=== PATIENT | male | born 1945 | race Caucasian/White ===

== ENCOUNTER → 2020-05-05 19:17 | Outpatient (CLI) | payer MEDICARE, SELFPAY ==
[2020-05-05 19:27] LABS: Basophils # 0.1 K/mm3 (0-0.2); Basophils % 0.9 % (0.1-2.0); Eosinophils # 0.2 K/mm3 (0.0-0.4); Eosinophils % 2.6 % (0.1-12.0); Neutrophils # 4.7 K/mm3 (1.8-7.8)
[2020-05-05 19:33] LABS: Hematocrit 58.9 % (42.0-52.0); Lymphocytes % 26.7 % (10-50); Mean Corpuscular HGB Conc 32.1 g/dL (31.8-35.4); Mean Corpuscular Hemoglobin 30.8 pg (27.0-31.2); Mean Platelet Volume 9.3 fl (7.4-10.4); Monocytes # 0.6 K/mm3 (0.1-1.0); Monocytes % 7.8 % (1.7-9.3); Neutrophils % 61.9 % (37.0-80.0); Platelet Count 227 K/mm3 (142-424); Red Blood Count 6.14 M/mm3 (4.60-6.20); White Blood Count 7.6 K/mm3 (4.8-10.8)
[2020-05-05 19:38] LABS: Alanine Aminotransferase 20 U/L (12-78); Albumin Level 4.2 g/dl (3.5-5.0); Albumin/Globulin Ratio 1.2 (1.1-1.8); Alkaline Phosphatase 86 U/L (38-126); Anion Gap 12.5 mEq/L (5-15); Aspartate Amino Transferase 27 U/L (17-59); Bilirubin,Total 1.2 mg/dl (0.2-1.3); Blood Urea Nitrogen 14 mg/dl (9-20); Calcium 9.9 mg/dl (8.4-10.2); Carbon Dioxide 25 mmol/L (22.0-30.0); Chloride 107 mmol/L (98-107); Chol/HDL Ratio 2.2 (1-3.5); Cholesterol 134 mg/dl (140-200); Estimated Glomerular Filt Rate 59 ml/min (>60); GFR (African American) 71 ML/MIN (>60); Globulin 3.5 g/dL (1.3-3.2); Glucose 96 mg/dl (74-100); HDL Cholesterol 62 mg/dl (40-60); Potassium 4.5 mmoL/L (3.5-5.1); Sodium 140 mmol/L (136-145); Total Protein,Serum 7.7 g/dl (6.3-8.2); Triglycerides 104 mg/dl (30-150); VLDL Cholesterol 21 mg/dL (0-40)
[2020-05-05 19:48] LABS: Hemoglobin 18.9 g/dL (14.1-18.0)
[2020-05-05 19:54] LABS: Free T4 (Free Thyroxine) 1.61 ng/dl (0.78-2.19)
[2020-05-05 19:55] LABS: 25-OH Vitamin D, Total 43.5 ng/mL (30-100)
[2020-05-05 20:08] LABS: Thyroid Stimulating Hormone 1.26 uIU/mL (0.465-4.68)
[2020-05-05 20:11] LABS: Hemoglobin A1C 5.7 % (4.0-6.0)
[2020-05-08 11:15] LABS: Creatinine,Urine Random 46 mg/dL (Not Estab.)
[2020-05-08 11:16] LABS: Microalbumin/Creatinine Ratio 89.5
== END ==
PROVIDERS: Visit Provider Emergency Medicine
DX: E11.9 Type 2 diabetes mellitus without complications (principal); E66.3 Overweight; I10 Essential (primary) hypertension; E55.9 Vitamin D deficiency, unspecified; Z79.84 Long term (current) use of oral hypoglycemic drugs
CPT/HCPCS: 80053; 80061; 82043; 82306; 82570; 83036; 84439; 84443; 85025

== ENCOUNTER → 2020-09-15 14:22 | Outpatient (CLI) | payer MEDICARE, MEDICAID, SELFPAY ==
--- NOTE | 2020-09-15 14:27 | CA_ITS ---
APPROVED REPORT EXAM: Comprehensive 2D, Doppler, and color-flow Echocardiogram Official Greeter: Deyanira Jules, RT(R) Ht: 5 ft 8 in Wt: 182lbs BSA: 1.96 BP: 124/74 mmHg Indications: murmur, DM, obesity 2D Dimensions LVOT 2.02 cm (M/F) 1.5-2.5 M-Mode Dimensions RVDd 1.34 cm (0.9-2.6) LA Diam 2.78 cm (1.9-4.0) LVDd 3.53 cm (3.5-5.7) Ao Diam 3.18 cm (2.0-3.7) LVDs 2.01 cm (3.5-5.7) IVSd 1.07 cm (0.6-1.1) PWd 0.80 cm (0.6-1.1) EF (Teich) 75.10% FS 43.10% EDV (Teich) 51.90 mL ESV (Teich) 12.90 mL LV Diastology E Decel Time 197.00 (160-240 msec) E/A Ratio 0.5 MED E' 7.30 (< 7 cm/sec) E'/MED E' Ratio 10.41 (>14) LAT E' 6.80 (<10 cm/sec) E/LAT E' Ratio 11.18 (>14) Aortic Valve LVOT Max 128.00 (70-110 cm/s) LVOT VTI 24.50 cm AoV Peak Desean. 206.00 (50-130 cm/s) AO Peak GR. 17.00 mmHg AO Mean GR. 9.90 (<5 mmHg) AO VTI 35.61 (18-25 cm) GRABIEL (VTI) 2.20 (2.5-4.5 cm2) Mitral Valve MV E Max Desean. 76.00 (40-130 cm/s) MV A Velocity 140.00 (40-130 cm/s) E/A Ratio 0.54 MV Decel. Time 197.00 (160-240 ms) MV PHT 58.00 ms Left Ventricle Left atrium is mildly enlarged, left ventricle is normal size, mild concentric left ventricular hypertrophy, visually estimated ejection fraction 55% with no regional wall motion abnormality, grade 1 diastolic dysfunction seen without tissue Doppler evidence of raise left atrial pressure. Right Ventricle Right atrium and right ventricle are normal size and contractility. Aortic Valve Aortic valve is thickened and calcified, mean gradient across aortic valve is 9 mmHg, this represents mild aortic stenosis, morphologically there is moderate aortic stenosis, there is no aortic insufficiency. Mitral Valve Mitral valve leaflets are minimally thickened, there is mild mitral regurgitation. Tricuspid Valve Tricuspid valve grossly normal, there is mild tricuspid regurgitation, tricuspid regurgitation jet velocity is inadequate for calculation of the right ventricular systolic pressure. Pulmonic Valve Pulmonic valve is poorly visualized. Great Vessels Aortic root is normal size. Pericardium No significant pericardial effusion noted. Conclusion 1. Mildly low left atrium, normal left ventricular size, mild concentric left ventricular hypertrophy, visually estimated ejection fraction 55% with no regional wall motion abnormality, grade 1 diastolic dysfunction seen without tissue Doppler evidence of raise left atrial pressure. 2. Thickened and calcified aortic valve morphologically there is moderate aortic stenosis, however Doppler is indicative of mild aortic stenosis, there is no aortic insufficiency. 3. Mild mitral and tricuspid regurgitation. 4. No significant pericardial effusion noted. Electronically signed by : Trung Kumari, 09/15/2020 17:18:40
== END ==
PROVIDERS: PCP Emergency Medicine; Visit Provider Emergency Medicine
DX: I35.8 Other nonrheumatic aortic valve disorders (principal)
CPT/HCPCS: 93306

== ENCOUNTER → 2020-10-06 11:16 | Outpatient (CLI) | payer MEDICARE, MEDICAID, SELFPAY ==
--- NOTE | 2020-10-06 11:16 | CA_ITS ---
APPROVED REPORT Objects Conservator: VANITA Laterality: Bilateral Study Quality: Good Indications: carotid bruit Doppler Spectral Velocity Analysis ECA (R) 123.10/16.00 cm/s dICA (L) 71.20/18.30 cm/s Harish (L) 58.50/23.80 cm/s dICA (R) 69.80/26.40 cm/s pICA (L) 51.70/15.70 cm/s Harish (R) 75.50/30.20 cm/s pICA (R) 86.80/18.90 cm/s dCCA (L) 57.40/17.90 cm/s pCCA (L) 68.90/15.10 cm/s dCCA (R) 56.00/14.90 cm/s pCCA (R) 84.00/14.60 cm/s Vert (L) 56.80/14.20 cm/s Vert (R) 41.50/10.40 cm/s ICA/CCA 1.20 ICA/CCA 1.60 Findings Duplex evaluation demonstrates stenosis of the right proximal internal carotid artery in the range of 20-49% with PSV <140 cm/sec, EDV <100 cm/sec, and IC/CC Ratio <4.0.Duplex evaluation demonstrates stenosis of the left proximal internal carotid artery in the range of 20-49% with PSV <140 cm/sec, EDV <100 cm/sec, and IC/CC Ratio <4.0.Antegrade flow seen bilateral vertebral arteries. Conclusion Duplex evaluation demonstrates stenosis of the right proximal internal carotid artery in the range of 20-49% with PSV <140 cm/sec, EDV <100 cm/sec, and IC/CC Ratio <4.0.Duplex evaluation demonstrates stenosis of the left proximal internal carotid artery in the range of 20-49% with PSV <140 cm/sec, EDV <100 cm/sec, and IC/CC Ratio <4.0.Antegrade flow seen bilateral vertebral arteries. Electronically signed by : Ru Tolentino MD 10/06/2020 16:44:35
== END ==
PROVIDERS: PCP Emergency Medicine; Visit Provider Nurse Practitioner Family
DX: E11.9 Type 2 diabetes mellitus without complications (principal); E78.5 Hyperlipidemia, unspecified; I10 Essential (primary) hypertension; I35.0 Nonrheumatic aortic (valve) stenosis; R01.1 Cardiac murmur, unspecified; R09.89 Other specified symptoms and signs involving the circulatory and respiratory systems; Z79.84 Long term (current) use of oral hypoglycemic drugs
CPT/HCPCS: 93880

== ENCOUNTER → 2023-06-03 14:32 | Outpatient (CLI) | payer MEDICARE, MEDICAID, SELFPAY ==
--- NOTE | 2023-06-03 14:36 | CA_ITS ---
APPROVED REPORT EXAM: Comprehensive 2D, Doppler, and color-flow Echocardiogram Subgrade Tester: Ofelia Enciso RVT Ht: 5 ft 7 in Wt: 183lbs BSA: 1.95 BP: 154/86 mmHg Indications: ,HTN,DM 2D Dimensions LVOT 2.10 cm (M/F) 1.5-2.5 LA Volume 63.80 mL LA Volume Index 32.72 mL/m2 (M/F) 16-34 M-Mode Dimensions RVDd 2.28 cm (0.9-2.6) LA Diam 3.71 cm (1.9-4.0) LVDd 5.58 cm (3.5-5.7) Ao Diam 3.30 cm (2.0-3.7) LVDs 3.68 cm (3.5-5.7) IVSd 0.68 cm (0.6-1.1) PWd 0.55 cm (0.6-1.1) EF (Teich) 62.30% FS 34.10% EDV (Teich) 152.40 mL TAPSE 2.54 (<1.7) ESV (Teich) 57.40 mL LV Diastology E Decel Time 267.00 (160-240 msec) E/A Ratio 0.8 MED E' 4.90 (< 7 cm/sec) E'/MED E' Ratio 17.96 (>14) LAT E' 4.90 (<10 cm/sec) E/LAT E' Ratio 17.96 (>14) Aortic Valve LVOT Max 129.00 (70-110 cm/s) LVOT VTI 30.55 cm AoV Peak Desean. 268.00 (50-130 cm/s) AO Peak GR. 28.80 mmHg AO Mean GR. 18.40 (<5 mmHg) AO VTI 68.95 (18-25 cm) GRABIEL (VTI) 1.53 (2.5-4.5 cm2) Mitral Valve MV E Max Desean. 88.00 (40-130 cm/s) MV A Velocity 111.00 (40-130 cm/s) E/A Ratio 0.79 MV Decel. Time 267.00 (160-240 ms) MV PHT 78.00 ms Pulmonary Valve PV Peak Velocity 89.00 (50-150 cm/s) Tricuspid Valve TR P. Velocity 233.00 cm/s RAP Estimate 10.00 mmHg RVSP 31.80 mmHg Left Ventricle The left ventricle is normal size. The left ventricular systolic function is normal. The left ventricular ejection fraction is within the normal range. There is increased LV wall thickness. There is normal LV segmental wall motion. Diastolic function is indeterminate. LVEF is 60%. Right Ventricle Right ventricle is mildly dilated. The right ventricular systolic function is normal. Atria The left atrium size is normal. The right atrium size is normal. There is no Doppler evidence of interatrial shunt. Aortic Valve The aortic valve leaflets are moderately thickened. Mild to moderate aortic stenosis. Aortic valve area by continuity equation is 1.6 cm???. Peak velocity 2.8 m/s. Mean AV gradient is 18 mmHg. Max AV gradient is 31 mmHg. Trace mitral regurgitation. Mitral Valve Moderate mitral annular calcification. The mitral valve leaflets are mildly thickened. No evidence of mitral valve stenosis. Mean MV gradient is 2 mmHg (HR 72 bpm). Trace mitral regurgitation. Tricuspid Valve The tricuspid valve leaflets are thin and pliable. Mild tricuspid regurgitation. RVSP is 25-30 mmHg. Pulmonic Valve The pulmonary valve is normal in structure. Trace pulmonic regurgitation. Great Vessels The aortic root is normal in size. The ascending aorta is normal in size. The IVC is dilated, but collapses > 50% with respirophasic variation. RA pressure is estimated at 8 mmHg. Pericardium There is no pericardial effusion. Other Information Study Quality: Fair Conclusion Normal biventricular systolic function. Mild RV dilation. Moderately thickened aortic valve. Mild to moderate (Aortic valve area by continuity equation is 1.6 cm???. Peak velocity 2.8 m/s. Mean AV gradient is 18 mmHg. Max AV gradient is 31 mmHg). Mild TR. Compared to prior study from 2020, the severity of appears overall unchanged. Electronically signed by : Hazel Rendon MD 06/10/2023 14:44:24
== END ==
LOC: RT 14:33
PROVIDERS: PCP Emergency Medicine; Visit Provider Emergency Medicine
DX: I35.0 Nonrheumatic aortic (valve) stenosis (principal)
CPT/HCPCS: 93306